=== PATIENT | male | born 1995 | race Caucasian/White ===

== ENCOUNTER 2019-10-19 17:31 | Emergency (ER) | payer OTHER, SELFPAY ==
[2019-10-19 18:08] VITALS: BP 129/82; PULSE 83; RESP 16; TEMP 37.1; O2SAT 97
--- NOTE | 2019-10-19 18:38 | ED.GENADULT ---
HPI - General Adult General Chief complaint: Skin/Abscess/Foreign Body Stated complaint: rash top of foot/ankle Time Seen by Provider: 10/19/19 18:27 Source: patient Mode of arrival: ambulatory Limitations: no limitations History of Present Illness HPI narrative: 24-year-old male presents for evaluation of rash to his bilateral feet and ankles. It is mostly located to right medial and lateral ankle and foot. Reports that as small scattered red lesions that are pruritic. He has noticed this for 1 week. He has not used any medications for this. He has not used any new soaps, lotions, products. He is wearing the same tennis shoes for the past year that are old and dirty. Denies any fever, recent illness, abnormal bleeding. No rash present anywhere else. Related Data Home Medications Medication Instructions Recorded Confirmed clonidine 10/19/19 Allergies Allergy/AdvReac Type Severity Reaction Status Date / Time No Known Allergies Allergy Verified 10/19/19 18:28 Review of Systems Review of Systems: Narrative: CONSTITUTIONAL: Denies fever, chills, weight loss, or sweats. EYES: Denies visual changes, redness, or discharge. ENT: Denies rhinorrhea, congestion, sore throat, or otalgia. CARDIOVASCULAR: Denies chest pain, palpitations, or edema. RESPIRATORY: Denies cough or dyspnea. GASTROINTESTINAL: Denies abdominal pain, nausea, vomiting, or diarrhea. GENITOURINARY: Denies dysuria, hematuria, urinary frequency, malordous urine SKIN: Reports rash and itching. MUSCULOSKELETAL: Denies back pain, joint pain, myalgia, swelling NEUROLOGIC: Denies headache, numbness, or weakness. PSYCHIATRIC: Denies anxiety or depression. PMFSH Comments At the time of my signature, I agree with nursing past medical, surgical, social and family history. There is no relevant family history pertinent to the presenting complaint. Exam Narrative: Exam Narrative: GENERAL: No distress, well appearing, well nourished, alert and calm HEAD: Normocephalic, atraumatic. MOUTH: Mucous membranes moist. No lesions. No cyanosis. Dentition grossly normal. THROAT: Oropharynx without signs erythema, exudates or lesions. Tonsils not enlarged. NECK: Supple. No lymphadenopathy. RESPIRATORY: Airway patent. Chest clear to auscultation bilaterally. Breath sounds equal bilaterally. No retractions. CARDIOVASCULAR: Regular rate and rhythm. No murmurs, rubs, gallops, or clicks. Capillary refill <2 seconds. MUSCULOSKELETAL: Range of motion grossly normal in all four extremities. Strength grossly normal in all four extremities. No edema. No swelling SKIN: Color normal. Warm and dry. Scattered pinpoint erythematous lesions to bilateral feet and ankles located to lateral and medial surfaces. Blanches with pressure. No drainage, Nontender, no swelling Course Vital Signs Vital signs: Vital Signs Temperature 98.8 F 10/19/19 18:08 Pulse Rate 83 10/19/19 18:08 Respiratory Rate 16 10/19/19 18:08 Blood Pressure 129/82 10/19/19 18:08 Pulse Oximetry 97 10/19/19 18:08 Temperature 98.8 F 10/19/19 18:08 Pulse Rate 83 10/19/19 18:08 Respiratory Rate 16 10/19/19 18:08 Blood Pressure 129/82 10/19/19 18:08 Pulse Oximetry 97 10/19/19 18:08 Reviewed The patient has been informed that they may have pre-hypertension or Hypertension based on a BP reading in the department. I recommend that the patient call the primary care provider listed on their discharge instructions or a physician of their choice this week to arrange follow up for further evaluation of possible pre-hypertension or Hypertension Medical Decision Making MDM Narrative Medical decision making narrative: Patient is in no acute distress and is non toxic appearing. Patient is appropriate for outpatient management, treatment, and follow up with PCP. Patient is aware of diagnosis, understands and agrees to treatment plan. Patient agrees to follow-up as directed and is aware of reasons to se
--- NOTE | 2019-10-19 18:48 | PC.NURSE ---
10/19/19 AT 1835 IN ERROR DID DISPOSITION AND DEPARTURE ON THIS PT. PT NOT DISCHARGE YET. Larry OCAMPO RN
== END 2019-10-19 19:07 | disposition home or self-care (01) ==
LOC: EXPBETH 17:53
PROVIDERS: Emergency Provider Nurse Practitioner
DX: R21 Rash and other nonspecific skin eruption (principal)
CPT/HCPCS: 99213; G0463

== ENCOUNTER 2021-12-17 10:57 | Emergency (ER) | payer OTHER, SELFPAY ==
[2021-12-17 11:04] VITALS: BP 131/83; PULSE 89; RESP 20; TEMP 36.7; O2SAT 96
--- NOTE | 2021-12-17 11:15 | ED.EAR ---
HPI - Ear Problem General Chief complaint: Ear Stated complaint: Ear Pain Time Seen by Provider: 12/17/21 11:15 Source: patient Mode of arrival: ambulatory Limitations: no limitations History of Present Illness HPI Narrative: 26-year-old male presented for complaint of cerumen impaction to the right ear causing decreased hearing. He states he has not cleaned his ears in about 2 years but does use Q-tips. He used Debrox for the last 2 days but states he thinks he pressed the cerumen up against the eardrum and now cannot hear. He denies tinnitus, headache, dizziness, nausea, vomiting. No other complaints at this time. MD Complaint: ear pain Related Data Home Medications Medication Instructions Recorded Confirmed clonidine HCl 0.3 mg PO BID 12/17/21 12/17/21 Allergies Allergy/AdvReac Type Severity Reaction Status Date / Time No Known Allergies Allergy Verified 12/17/21 11:17 Review of Systems Review of Systems: CONSTITUTIONAL: Denies malaise, chills, or fever. EYES: Denies visual changes, redness, or discharge. ENT: Reports cerumen impaction, decreased hearing CARDIOVASCULAR: Denies chest pain, palpitations, or edema. RESPIRATORY: Denies cough or dyspnea. GASTROINTESTINAL: Denies abdominal pain, nausea, vomiting, diarrhea SKIN: Denies rash or itching. MUSCULOSKELETAL: Denies myalgia. NEUROLOGIC: Denies headache. All systems reviewed & are unremarkable except as noted in HPI and below PMFSH Comments At time of signature, agree with nursing past medical, surgical, social and family history. There is no relevant family history pertinent to the presenting complaint Exam Narrative: GENERAL: Well-appearing, well-nourished, and in no acute distress. HEAD: Normocephalic EYES: PERRLA, conjunctivae clear ENT: Nares clear. Mucous membranes moist. Bilateral TMs unable to visualize due to cerumen impactions; no tragal tenderness. Oropharynx not erythematous without lesions. NECK: Supple. No lymphadenopathy CHEST: Clear to auscultation, breath sounds equal. HEART: Regular rate and rhythm. No murmur heard. SKIN: Warm, dry, no rash. NEURO: Alert and oriented x3. PSYCH: Normal mood and affect Course Course Emergency Course: Patient is aware of diagnosis, understands and agrees to treatment plan. Anticipatory guidance given. Patient agrees to follow-up as directed and is aware of reasons to seek care at the emergency department. Portions of this record may have been created with voice recognition software Level of Care: Express Care Visit Vital Signs Vital signs: Vital Signs Temperature 98.1 F 12/17/21 11:04 Pulse Rate 89 12/17/21 11:04 Respiratory Rate 20 12/17/21 11:04 Blood Pressure 131/83 12/17/21 11:04 Pulse Oximetry 96 12/17/21 11:04 Temperature 98.1 F 12/17/21 11:04 Pulse Rate 89 12/17/21 11:04 Respiratory Rate 20 12/17/21 11:04 Blood Pressure 131/83 12/17/21 11:04 Pulse Oximetry 96 12/17/21 11:04 Reviewed Procedures Ear Wax Removal Right Ear: Ear Wax Removal Date: 12/17/21 Ear Wax Removal Time: 11:28 Cerumenolytic Used: other (hydrogen peroxide, warm water) Results: Re-examined: some cerumen remains Ear Canal Exam: atraumatic Patient Tolerated Procedure: well Complications: no problems Technique: ear canal irrigated and ear canal curetted Additional Comments: unable to visualize TM, instructed on continuing debrox and return for removal if needed Medical Decision Making MDM Narrative Medical decision making narrative: Exam findings show no acute concerns, tolerated right ear irrigation with moderate removal, continues to have impaction near TM and decreased hearing; declined left ear irrigation due to hearing is intact. patient is non-toxic appearing. Patient is appropriate for outpatient treatment and follow-up. Differential Diagnosis Differential Diagnosis: Differential diagnosis considered: Coronavirus, strep p
== END 2021-12-17 11:40 | disposition home or self-care (01) ==
PROVIDERS: Emergency Provider Nurse Practitioner Family
DX: H61.21 Impacted cerumen, right ear (principal); F90.9 Attention-deficit hyperactivity disorder, unspecified type; Z86.16 Personal history of COVID-19
CPT/HCPCS: 69210; 99212; G0463